=== PATIENT | female | born 1990 | race Caucasian/White ===

== ENCOUNTER 2017-08-17 09:43 | Outpatient (CLI) | payer BC ==
[~2017-08-17] VITALS: Ht 157.5 cm; Wt 65.5 kg
[~2017-08-17 09:43] MED LIST: MOTRIN 600600 MG/TAB PO; NO HOME MEDICATIONS; PERCOCET 325 MG1 TA2 PO; ULTRAM 50MG TAB50 MG PO
[2017-08-17 09:57] VITALS: BP 117/68; PULSE 78; TEMP 98.4
[2017-08-17] MEDS ORDERED: UNISOM25 MG PO (10:02)
[2017-08-17] MEDS ORDERED: PRENATAL1 TA7 PO (10:02)
== END 2017-08-17 10:10 | disposition home or self-care (01) ==
LOC: LDRO 09:43
DX: O30.002 Twin pregnancy, unspecified number of placenta and unspecified number of amniotic sacs, second trimester (principal); Z3A.21 21 weeks gestation of pregnancy

== ENCOUNTER 2017-10-27 10:54 | Outpatient (CLI) | payer BC ==
[~2017-10-27] VITALS: Ht 157.5 cm; Wt 71.4 kg
[~2017-10-27 10:54] MED LIST changes: +PRENATAL1 TA7 PO; +UNISOM25 MG PO
[2017-10-27 11:23] VITALS: BP 115/65; PULSE 78; TEMP 98.5
[2017-10-27 11:30] VITALS: BP 115/65; PULSE 78; TEMP 98.5
[2017-10-27 12:00] VITALS: BP 101/72; PULSE 88
[2017-10-27 12:34] VITALS: BP 99/62; PULSE 84
== END 2017-10-27 12:45 | disposition home or self-care (01) ==
LOC: LDRO 10:54 → LDR 11:00 → LDRO 12:45
DX: O30.003 Twin pregnancy, unspecified number of placenta and unspecified number of amniotic sacs, third trimester (principal); O99.89 Other specified diseases and conditions complicating pregnancy, childbirth and the puerperium; R10.9 Unspecified abdominal pain; Z3A.31 31 weeks gestation of pregnancy
CPT/HCPCS: OP; J0702; J7120

== ENCOUNTER 2017-11-28 14:08 | Outpatient (CLI) | payer BC ==
[~2017-11-28] VITALS: Ht 157.5 cm; Wt 75.7 kg
[2017-11-28] MEDS ORDERED: AMOXICILLIN/CLA1 TA1 PO (14:23)
[2017-11-28 14:24] VITALS: BP 117/69; PULSE 88; TEMP 98
== END 2017-11-28 15:05 ==
LOC: LDRO 14:08
DX: O30.003 Twin pregnancy, unspecified number of placenta and unspecified number of amniotic sacs, third trimester (principal); O36.8130 Decreased fetal movements, third trimester, not applicable or unspecified; Z3A.36 36 weeks gestation of pregnancy

== ENCOUNTER 2017-12-08 06:34 | Inpatient (IN) | payer BC ==
[~2017-12-08] VITALS: Ht 157.5 cm; Wt 75.9 kg
[2017-12-08] VITALS (36 sets, daily range): BP systolic 97–137; BP diastolic 56–78; PULSE 54–88; TEMP 97.8–98.5
[~2017-12-08 06:34] MED LIST changes: +AMOXICILLIN/CLA1 TA1 PO
[2017-12-08 08:11] LABS: BASO % 0.3 % (0.0-2.0); EOS # 0.1 (0.0-0.7); EOS % 0.7 % (0-4.0); GRAN # 8.7 (1.4-6.5); GRAN % 72.1 % (42.2-75.2); HEMOGLOBIN 11.4 g/dl (12.5-16.0); LYMPH # 2.2 (1.2-3.4); LYMPH % 18.4 % (20.0-51.0); MEAN CELL VOLUME 94 fl (80.0-100.0); MEAN CORPUSCULAR HEMOGLOBIN 34 pg (27.0-31.0); MEAN CORPUSCULAR HGB CONC 36 g/dl (33.0-37.0); MONO # 0.9 (0.1-0.6); MONO % 7.6 % (1.7-9.3); PLATELET COUNT 161 K/mm3 (130-400); RED BLOOD COUNT 3.36 M/mm3 (4.10-5.30); REDCELL DISTRIBUTION WIDTH-CV 13.8 % (11.5-14.5)
[2017-12-08 08:12] LABS: HEMATOCRIT 31.5 % (37.0-47.0)
[2017-12-09 07:00] VITALS: BP 108/68; PULSE 70; TEMP 98.3
[2017-12-09] MEDS ORDERED: IBU800 M1 PO (07:25)
[2017-12-09 19:38] VITALS: BP 109/65; PULSE 66; TEMP 97.5
[2017-12-10 08:03] VITALS: BP 106/61; PULSE 78; TEMP 98.9
== END 2017-12-10 12:30 | disposition home or self-care (01) | DRG 775 ==
LOC: LDR 06:34 → OB 15:59
PROVIDERS: Student in an Organized Health Care Education/Training Program
PROC: 10E0XZZ Delivery of Products of Conception, External Approach (ICD-10-PCS; principal; 2017-12-08)
PROC: 10907ZC Drainage of Amniotic Fluid, Therapeutic from Products of Conception, Via Natural or Artificial Opening (ICD-10-PCS; 2017-12-08)
PROC: 3E033VJ Introduction of Other Hormone into Peripheral Vein, Percutaneous Approach (ICD-10-PCS; 2017-12-08)
PROC: 10S0XZZ Reposition Products of Conception, External Approach (ICD-10-PCS; 2017-12-08)
DX: O30.043 Twin pregnancy, dichorionic/diamniotic, third trimester (principal); Z3A.49 Greater than 42 weeks gestation of pregnancy; Z37.2 Twins, both liveborn; O32.1XX2 Maternal care for breech presentation, fetus 2; O76 Abnormality in fetal heart rate and rhythm complicating labor and delivery
CPT/HCPCS: J2210; J2590; J2795; J7120

== ENCOUNTER → 2018-09-23 | Outpatient (CLI) | payer BC ==
[~2018-09-23] MED LIST changes: +IBU800 M1 PO
== END ==
LOC: MC.RAD 10:30
DX: N63.42 Unspecified lump in left breast, subareolar (principal)